=== PATIENT | female | born 1970 | race Caucasian/White ===

== ENCOUNTER 2022-03-29 17:05 | Outpatient (CLI) | payer OTHER, SELFPAY ==
[2022-03-29 22:36] LABS: Albumin* 4.7 g/dL (3.3-5.0); Chloride* 103 mmol/L (96-114); Potassium* 4.2 mmol/L (3.6-5.1); Sodium* 139 mmol/L (135-149)
[2022-03-29 22:39] LABS: Alanine Aminotransferase* 20 U/L (4-35); Alkaline Phosphatase* 52 U/L (40-150); Aspartate Amino Transferase* 22 U/L (12-35); Bilirubin Total* 0.4 mg/dL (0.1-1.5); Blood Urea Nitrogen* 11 mg/dL (7-30); Carbon Dioxide* 26 mmol/L (20-32); Creatinine* 0.8 mg/dL (0.5-1.5); Estimated Glomerular Filt Rate 89 ml/min; Glucose* 102 mg/dL (60-115); Total Protein* 7.4 g/dL (6.0-8.3)
[2022-03-29 22:40] LABS: Calcium* 9.9 mg/dL (8.4-10.6)
== END 2022-03-29 17:06 | disposition home or self-care (01) ==
PROVIDERS: PCP Physician Assistant Medical; Visit Provider Physician Assistant Medical
DX: Z00.00 Encounter for general adult medical examination without abnormal findings (principal); N95.0 Postmenopausal bleeding; D68.51 Activated protein C resistance; E66.01 Morbid (severe) obesity due to excess calories
CPT/HCPCS: 80053; 83001; 84443

== ENCOUNTER 2022-06-07 06:15 | Outpatient (CLI) | payer OTHER, SELFPAY ==
[2022-06-07 07:10] LABS: SARS PCR* Negative SARS-CoV-2 (Negative)
== END 2022-06-07 06:16 | disposition home or self-care (01) ==
PROVIDERS: PCP Physician Assistant Medical; Visit Provider Internal Medicine
DX: Z12.11 Encounter for screening for malignant neoplasm of colon (principal)
CPT/HCPCS: 45378; 87426; 87635; J2250; J3010

== ENCOUNTER 2022-06-11 08:35 | Outpatient (CLI) | payer OTHER, SELFPAY ==
--- NOTE | 2022-06-11 08:45 | CRLHL7_ITS ---
For Patients: As a result of the Century Cures Act, medical imaging exams and procedure reports are released immediately into your electronic medical record. You may view this report before your referring provider. If you have questions, please contact your health care provider. BILATERAL SCREENING MAMMOGRAM WITH COMPUTER-AIDED DETECTION TECHNIQUE: CC and MLO views were obtained. These mammographic images have been obtained using full-field digital technique. These mammographic images were interpreted with the benefit of computer-aided detection. COMPARISON FILM: 11/22/19, 05/29/18, 10/22/15. FINDINGS: The breasts are almost entirely fatty IMPRESSION: There is no radiographic evidence for malignancy. ASSESSMENT: BI-RADS Category 1: Negative RECOMMENDATION: Routine screening mammogram in 1 year. A lay language report of this examination will be provided to the patient. Jean-Claude Arias M.D. Diagnostic Radiologist [email or web address] ANJU/Dictated by: Jean-Claude Arias MD @ 06/11/2022 11:25:00 AM (Electronically Signed)
--- NOTE | 2022-06-11 09:15 | CRLHL7_ITS ---
For Patients: As a result of the Century Cures Act, medical imaging exams and procedure reports are released immediately into your electronic medical record. You may view this report before your referring provider. If you have questions, please contact your health care provider. INDICATION: POST MENOPAUSAL BLEEDING COMPARISON: none TECHNIQUE: 2D tejada scale and color Doppler images were acquired of the pelvis using a transabdominal and transvaginal approach. FINDINGS: Sonographic images demonstrate a normal size and smooth outer contour of the uterus. Uterus measures 7.1 cm in length by 4.7 cm in AP diameter by 6.2 cm in transverse dimension. The myometrium has a normal uniform echotexture. The endometrial lining measures 14 mm in composite thickness. A focal area heterogeneous echotexture is present associated with the endometrial stripe measuring 11 x 9 x 15 millimeters. Associated vascularity noted. The right ovary measures 3.5 x 1.6 x 2.1 cm in size and the left ovary measures 3.3 x 1.8 x 2.3 cm. The ovaries demonstrate normal arterial and venous blood flow on color Doppler analysis. There are no suspicious fluid collections within the cul-de-sac. IMPRESSION: Possible endometrial polyp measuring 1.5 cm. Endometrial thickness 1.4 cm. Dictated by Jean-Claude Arias MD @ 06/11/2022 10:23:24 AM (Electronically Signed)
== END 2022-06-11 08:36 | disposition home or self-care (01) ==
LOC: MAMMO 08:37
PROVIDERS: PCP Physician Assistant Medical; Visit Provider Physician Assistant Medical
DX: Z12.31 Encounter for screening mammogram for malignant neoplasm of breast (principal); N95.0 Postmenopausal bleeding; R93.89 Abnormal findings on diagnostic imaging of other specified body structures
CPT/HCPCS: 76830; 76856; 77067

== ENCOUNTER 2022-10-19 06:01 | Day surgery (SDC) | payer OTHER, SELFPAY ==
[2022-10-19 06:26] VITALS: BMI 50.8
[2022-10-19 06:27] LABS: Ur HCG Qualitative* Negative (Negative)
[2022-10-19 06:29] VITALS: BP 145/98; PULSE 75; RESP 20; TEMP 36.3; O2SAT 94
[2022-10-19] MEDS: LACTATED RINGERS 1000 ML 1,000 ML 100 ML IV (07:00)
[2022-10-19] MEDS: LIDOCAINE 1% MDV 20 ML INJECTION (07:50)
[2022-10-19] MEDS: BUPIVACAINE 0.25% 30 ML 20 ML INJECTION (07:50)
--- NOTE | 2022-10-19 08:00 | W.ANESCHARGE ---
Anesthesia Charges Start Date/Time Anesthesia Start Date: 10/19/22 Anesthesia Start Time: 07:30 Stop Date/Time Anesthesia Stop Date: 10/19/22 Anesthesia Stop Time: 08:17
[2022-10-19] MEDS: KETOROLAC 30 MG/ML inj IVP (08:02)
--- NOTE | 2022-10-19 08:09 | P.GYNPRC_ITS ---
Procedure Note Date of procedure: 10/19/22 Pre-op diagnosis: Oligomenorrhea, thickened endometrial stripe, possible polyp on ultrasound Post-op diagnosis: same Procedure: Hysteroscopy, D&C, polypectomy Anesthesia: MAC and local Complications: None. Surgeon: Janae Dalal MD Estimated blood loss (mL): 5 Pathology: specimen obtained, sent to pathology Condition: stable Disposition: same day Findings: Large endometrial polyp arising from the posterior aspect of the endometrial cavity. Procedure Description: After obtaining informed consent, the patient was taken to the operating room where she received monitored anesthesia care. She was prepared and draped in the normal sterile fashion, in the dorsal lithotomy position. An open-sided biv alve speculum was introduced into the vagina and the cervix visualized. The anterior lip of the cervix was grasped with a single-tooth tenaculum for traction. A paracervical block was then administered using a total of 20 mL of a 50/50 mixture of 0.25% Marcaine and 1% lidocaine plain. I attempted to pass a small Hegar uterine dilator, but the cervix was somewhat stenotic. Tiny cervical dilators were then used to identify the endocervical canal and dilated until the Hegar dilators could be used. The uterus was gently sounded. Sound length was 8 cm. The cervix was gently dilated to a # 6 Hegar dilator. A hysteroscope was then advanced under direct visualization through the cervix into the uterine cavity. Sterile normal saline was used as distending medium. The uterine cavity was carefully inspected with the findings noted above. Pictures were taken for documentation purposes. The TruClear morcellator was inserted through the operating channel in the hysteroscope. The morcellator was used to remove the polyp in its entirety. The hysteroscope was then removed. The endometrial lining was then sharply curetted. The tenaculum was removed. There was little bleeding from the tenaculum site, which was controlled with direct pressure sponge stick. All instruments were then removed. The patient tolerated the procedure well. Sponge, lap, needle, and instrument counts rep orted as correct x2. The patient was taken to the recovery room awake in a stable condition.
[2022-10-19 08:15] VITALS: BP 126/84; PULSE 70; RESP 20; TEMP 36.2; O2SAT 96
--- NOTE | 2022-10-19 08:17 | W.ANESCHARGE ---
Anesthesia Charges Start Date/Time Anesthesia Start Date: 10/19/22 Anesthesia Start Time: 07:30 Stop Date/Time Anesthesia Stop Date: 10/19/22 Anesthesia Stop Time: 08:17
[2022-10-19 08:30] VITALS: BP 118/86; PULSE 71; RESP 20; O2SAT 96
[2022-10-19 08:46] VITALS: BP 101/65; PULSE 70; RESP 20; O2SAT 97
[2022-10-19 09:02] VITALS: BP 131/86; PULSE 64; RESP 20; TEMP 36.3; O2SAT 97
[2022-10-19 09:31] VITALS: BP 117/86; PULSE 67; RESP 20; O2SAT 97
== END 2022-10-19 09:57 | disposition home or self-care (01) ==
PROVIDERS: Obstetrics & Gynecology; PCP Physician Assistant Medical; Visit Provider Obstetrics & Gynecology
PROC: 0UDB8ZZ Extraction of Endometrium, Via Natural or Artificial Opening Endoscopic (ICD-10-PCS; CPT 58558; principal; 2022-10-19 07:15)
DX: N91.5 Oligomenorrhea, unspecified (principal); N84.0 Polyp of corpus uteri; R93.89 Abnormal findings on diagnostic imaging of other specified body structures
CPT/HCPCS: 58558; 81025; 88305; 952; J0665; J1885; J2250; J2704; J3010; J7120